=== PATIENT | female | born 1975 | race Caucasian/White ===

== ENCOUNTER 2023-10-11 12:57 | Emergency (ER) | payer OTHER ==
[~2023-10-11] VITALS: Ht 149.9 cm; Wt 57.2 kg
[~2023-10-11 12:57] MED LIST: METF-1274 PO
[2023-10-11 13:11] VITALS: BP 155/79; PULSE 100; RESP 18; TEMP 98.3; O2SAT 99
[2023-10-11 13:55] LABS: BASOPHILS # (AUTO) 0.1 K/uL (0.00-0.22); BASOPHILS % (AUTO) 1.1 % (0.0-2.0); EOSINOPHILS # (AUTO) 0.1 K/uL (0-0.4); EOSINOPHILS % (AUTO) 1.5 % (0.0-4.0); HEMATOCRIT 37.5 % (36-48); HEMOGLOBIN 12.4 g/dL (12.0-16.0); LYMPHOCYTES # (AUTO) 1.8 K/uL (2.5-16.5); LYMPHOCYTES % (AUTO) 28.6 % (20.5-51.1); MEAN CORPUSCULAR HEMOGLOBIN 27 pg (27-31); MEAN CORPUSCULAR HGB CONC 33 g/dL (33-37); MONOCYTES # (AUTO) 0.5 K/uL (0.8-1.0); MONOCYTES % (AUTO) 8.3 % (1.7-9.3); NEUTROPHILS # (AUTO) 3.8 K/uL (1.8-7.7); NEUTROPHILS % (AUTO) 60.5 % (42.2-75.2); PLATELET COUNT (AUTO) 367 K/uL (140-450); RED BLOOD CELL COUNT(AUTO) 4.63 MIL/uL (4.20-5.40); RED CELL DISTRIBUTION WIDTH 17.2 % (11.6-13.7); WHITE BLOOD COUNT (AUTO) 6.3 K/uL (4.8-10.8)
[2023-10-11 14:20] LABS: ALBUMIN 3.4 g/dL (3.4-5.0); TOTAL BILIRUBIN 0.1 mg/dL (0.0-1.0); TOTAL PROTEIN, SERUM 8.3 g/dL (6.4-8.2)
[2023-10-11 14:31] LABS: ANION GAP 13.9 (8-16); CARBON DIOXIDE 24.1 mmol/L (21-32); CREATININE 0.8 mg/dL (0.6-1.3)
[2023-10-11] MEDS: ACETAMINOPHEN EXTRA STRENGTH 500 MG TAB PO ONE (16:32)
[2023-10-11] MEDS: KETOROLAC 30 MG/ML VIAL IVP ONE (16:32)
[2023-10-11] MEDS: NACL 0.9% 1,000 ML IV ONE (16:33)
[2023-10-11 18:09] VITALS: BP 132/70; PULSE 100; RESP 18; TEMP 98.3; O2SAT 99
== END 2023-10-11 17:57 | disposition home or self-care (01) ==
LOC: MED 12:57
DX: D25.9 Leiomyoma of uterus, unspecified (principal); E11.9 Type 2 diabetes mellitus without complications; Z79.899 Other long term (current) drug therapy
CPT/HCPCS: 36415; 74177; 80048; 80076; 81025; 83605; 83690; 85025; 96361; 96374; 99285; J1885; J7030; Q9967